=== PATIENT | female | born 1985 | race Two or more races ===

== ENCOUNTER 2025-04-24 09:34 | Emergency (ER) | payer MEDICAID, SELFPAY ==
[2025-04-24 09:35] VITALS: BMI 31.9
[2025-04-24 09:43] VITALS: BP 108/64; PULSE 98; RESP 18; TEMP 36.6; O2SAT 99
--- NOTE | 2025-04-24 09:58 | XR_ITS ---
EXAMINATION: PA lateral chest 2 views TECHNIQUE: Upright PA lateral chest 2 views Date and time: April 24, 2025, 1003 hours INDICATIONS: Chest pain today. FINDINGS: Normal heart size Lungs are clear. Osseous structures are intact IMPRESSION: No active disease
--- NOTE | 2025-04-24 09:58 | EKG_ITS ---
[facility] Test Date: 2025-04-24 Pat Name: EKTA AMADOR Department: Room: - Gender: Female Allergist: : 1985 Requested By: Edis Larsen (GRAD INTERN) Order Number: [id number] Reading MD: Edis Larsen (GRAD INTERN) Measurements Intervals Vale Rate: 91 P: 47 ND: 142 QRS: 10 QRSD: 102 T: 61 QT: 336 QTc: 415 Interpretive Statements SINUS RHYTHM Compared to ECG 08/16/2021 03:47:06 No significant changes /store/S0/[id number].pdf
--- NOTE | 2025-04-24 09:59 | PD.EDRME ---
Rapid Medical Screening Exam RME Arrival date/time: 04/24/25 09:34 39-year-old female history of prediabetes, cholecystectomy, pancreatitis presents to the emergency department today for complaint of upper abdominal pain x 1 week Chief Complaint: Abdominal Pain Time Seen by Provider: 04/24/25 09:51 Vital signs: Vital Signs Temperature 97.8 F 04/24/25 09:43 Pulse Rate 98 04/24/25 09:43 Respiratory Rate 18 04/24/25 09:43 Blood Pressure 108/64 04/24/25 09:43 Pulse Oximetry (%) 99 04/24/25 09:43 Oxygen Delivery Method Room Air 04/24/25 09:43 Vital signs reviewed by provider: Yes Exam: On exam patient is mild tenderness upper abdomen Clinical Impression: Labs imaging EKG obtained
[2025-04-24 10:28] LABS: Collection Type, Urine Clean Catch
[2025-04-24 10:40] LABS: Bilirubin,Urine Negative (Negative); Blood,Urine Negative (Negative); Clarity,Urine Clear (Clear/Hazy); Color,Urine Lt-Yellow (Lt Yel-Yel); Culture Indicated,Urine Not Indicated; Glucose, Urine Negative (Negative); Ketones,Urine Negative (Negative); Leukocyte Esterase,Urine Negative (Negative); Nitrite,Urine Negative (Negative); PH,Urine 6.0 (5.0-7.0); Protein,Urine Negative (Neg - Trace); RBC,Urine 1 /hpf (0-3); Specific Gravity,Urine 1.017 (1.001-1.035); Squamous Epithelial Cell,Urine 1 /hpf (0-5); Urobilinogen,Urine Negative mg/dL (0.0-1.0); WBC,Urine 1 /hpf (0-5)
[2025-04-24 10:41] LABS: HCG Qualitative,Urine Negative
[2025-04-24 11:07] LABS: Basophils # (Auto) 0.0 Thou/mm3 (0.0-0.2); Basophils % (Auto) 1 % (0-2.5); Eosinophils # (Auto) 0.2 Thou/mm3 (0.0-0.5); Eosinophils % (Auto) 3 % (0-10); Hematocrit 39.9 % (36.0-46.0); Hemoglobin 13.5 g/dL (12.0-16.0); Immature Granulocytes Auto 0.03 Thou/mm3 (0.00-0.00); Lymphocytes # (Auto) 2.3 Thou/mm3 (1.0-4.8); Lymphocytes % (Auto) 29 % (10-50); Mean Corpuscular HGB Conc 33.8 g/dl (31.0-37.0); Mean Corpuscular Hemoglobin 29.7 pg (25.0-35.0); Mean Corpuscular Volume 88 fL (80-100); Monocytes # (Auto) 0.6 Thou/mm3 (0.0-0.8); Monocytes % (Auto) 7 % (0-12); Neutrophils # (Auto) 4.8 Thou/mm3 (1.8-7.7); Neutrophils % (Auto) 60 % (37-80); Nucleated Red Blood Cell # 0.00 Thou/mm3 (0.00-0.00); Nucleated Red Blood Cell % 0 /100 WBC (0); Platelet Count 265 Thou/mm3 (140-440); RDW Standard Deviation 40.3 fL (36.4-46.3); Red Blood Count 4.54 Miln/mm3 (4.00-5.20); White Blood Count 8.0 Thou/mm3 (3.6-11.0)
[2025-04-24 11:25] LABS: Alanine Aminotransferase 23 U/L (10-49); Albumin, Serum 4.8 gm/dL (3.5-5.0); Albumin/Globulin Ratio 1.8 (1.2-2.2); Alkaline Phosphatase 92 U/L (46-116); Anion Gap 9 (7-16); Aspartate Amino Transferase 19 U/L (0-34); BUN/Creatinine Ratio 16 Ratio (12-20); Bilirubin,Total 1.0 mg/dL (0.3-1.2); Blood Urea Nitrogen 11 mg/dL (9-23); Calcium 9.3 mg/dL (8.3-10.6); Calcium (Corrected) 9.3 mg/dL (8.5-10.1); Carbon Dioxide 25.9 mMol/L (20.0-31.0); Chloride 105 mMol/L (98-107); Creatinine (Component) 0.7 mg/dL (0.6-1.3); Estimated Creatinine Clearance 130.2 mL/min (>60); Globulin 2.7 gm/dL (2.3-3.5); Glucose 92 mg/dL (74-106); Lipase 46 U/L (12-53); Osmolality,Calculated 278 (275-295); Potassium 4.7 mMol/L (3.4-5.1); Sodium 140 mMol/L (136-145); Total Protein 7.5 gm/dL (5.7-8.2); Troponin I < 0.002 ng/mL (0.0-0.045); eGFR > 60 See Note
--- NOTE | 2025-04-24 12:03 | XR_ITS ---
Examination: CT abdomen and pelvis without contrast. Coronal 3-D reconstructions. Sagittal 2-D reconstructions. Date and time of exam: April 24, 2025, 1319 hours, comparison April 19, 2022 INDICATIONS: Abdominal pain nausea vomiting diarrhea 3 days CTDI: vol (mGy): 11 DLP: (mGycm): 693 Technique: Axial images of the abdomen have been obtained, 3 mm slice thickness Intravenous contrast material has not been administered. Low dose protocols were performed. One or more of the following dose reduction techniques were used; automated exposure control, adjustment of the mA and/or KV according to patient size, use of iterative reconstruction technique. Findings: No visualized liver or splenic lesion Absent gallbladder No pancreatic or adrenal mass No renal or ureteral calculi, no hydronephrosis 7 mm fat density posterior right kidney and 21 mm angiomyolipoma lower pole right kidney Aorta normal size Normal appendix No bowel obstruction Minimal fluid distended small bowel Left pelvic mass 4.5 cm which may represent a cyst Urinary bladder intact Prominent thoracic spondylosis T11-L1 IMPRESSION: Benign-appearing right renal angiomyolipomas Normal appendix Recommend pelvic sonography to assess 4.5 cm left pelvic mass
--- NOTE | 2025-04-24 15:18 | XR_ITS ---
Examination: Pelvic ultrasound, transabdominal, complete Technique: Transabdominal ultrasound of the pelvis performed using grayscale imaging Date and time of exam: April 24, 2025, 1440 hours INDICATIONS: Pelvic pain today, 4.5 cm left pelvic mass on CT abdomen/pelvis study today FINDINGS: Uterus 10.2 cm endometrial stripe 1.0 cm No uterine mass or intrauterine gestation Right ovary 3.2 cm arterial flow Left ovary 6.0 cm arterial flow, 5.2 x 4.0 x 4.9 cm mixed echogenic mass which may represent a cyst with internal debris IMPRESSION: Recommend MRI pelvis follow-up pre and postcontrast to assess complex partially cystic mass left ovary, 5.2 x 4.0 x 4.9 cm
[2025-04-24 15:57] VITALS: BP 112/60; PULSE 79; RESP 16; TEMP 36.6; O2SAT 100
--- NOTE | 2025-04-24 16:33 | PD.EDABDPN ---
ED Abdominal Pain RME/HPI General Chief Complaint: Abdominal Pain Stated complaint: abd pain Time seen by provider: 04/24/25 09:51 Arrival date/time: 04/24/25 09:34 40-year-old female presents to the emergency department today for complaints of generalized abdominal pain over the last couple of days patient reports no fever nausea or vomiting. Limitations: no limitations RME / HPI RME / HPI narrative: 04/24/25 09:34 39-year-old female history of prediabetes, cholecystectomy, pancreatitis presents to the emergency department today for complaint of upper abdominal pain x 1 week Exam: On exam patient is mild tenderness upper abdomen Impression: Labs imaging EKG obtained Related Data Home Medications ?Medication ?Instructions ?Recorded ?Confirmed loratadine 10 mg tablet 10 mg PO QDAY 04/19/22 04/20/22 pantoprazole 40 mg tablet,delayed 40 mg PO QDAY 04/19/22 04/20/22 release montelukast 10 mg tablet 10 mg PO QDAY 04/20/22 04/20/22 Previous Rx's ?Medication ?Instructions ?Recorded oxycodone-acetaminophen 5 mg-325 1 tab PO Q6H PRN pain #10 tabs 04/22/22 mg tablet (Percocet) aluminum-mag hydroxide-simethicone 10 ml PO TID PRN indigestion 11/16/23 400 mg-400 mg-40 mg/5 mL oral susp #3,000 mL (Antacid Plus Anti-Gas) ondansetron 4 mg disintegrating 4 mg PO Q8H PRN nausea and 11/16/23 tablet vomiting #30 tabs Allergies Allergy/AdvReac Type Severity Reaction Status Date / Time No Known Allergies Allergy Verified 04/24/25 09:39 Review of Systems Review of Systems Systems Reviewed: All systems reviewed, normal except as documented Constitutional Constitutional: Reports system reviewed and no additional complaints, except as documented, Denies fever(s) and Denies headache(s) Eyes Eyes: Reports system reviewed and no additional complaints, except as documented and Denies blurry vision ENT Ears, Nose, Mouth, and Throat: Reports system reviewed and no additional complaints, except as documented, Denies headache(s), Denies nasal congestion and Denies nasal discharge Cardiovascular Cardiovascular: Reports system reviewed and no additional complaints, except as documented, Denies chest pain and Denies dyspnea Respiratory Respiratory: Reports system reviewed and no additional complaints, except as documented, Denies chest congestion, Denies cough and Denies dyspnea Gastrointestinal Gastrointestinal: Reports system reviewed and no additional complaints, except as documented and Reports abdominal pain Integumentary/Breasts Skin/Breast: Reports system reviewed and no additional complaints, except as documented and Denies rash Neurologic Neurologic: Reports system reviewed and no additional complaints, except as documented, Reports as per HPI and Denies headache(s) Past Medical History Past Medical History NEUROLOGIC: Negative Neurological Disorders or Seizures CARDIAC: Negative Cardiac Disorders or Congestive Heart Failure RESPIRATORY: Negative Chronic Obstructive Pulmonary Disease (COPD) or Asthma GASTROINTESTINAL: Positive Gastroesophageal Reflux Disease; Negative Gastrointestinal Disorders GENITOURINARY: Negative Genitourinary Disorders or Renal Disease REPRODUCTIVE: Positive Previous Pregnancies () MUSCULOSKELETAL: Positive Musculoskeletal Disorders ENDOCRINE: Negative Endocrine Disorders, Diabetes Mellitus Type 1 or Diabetes Mellitus Type 2 HEMATOLOGIC: Negative Blood Disorders or Sickle Cell Disease PSYCHO/SOCIAL: Positive Depression and Anxiety OTHER HISTORY: Positive Chicken Pox; Negative Hospitalization, Shingles, Falls, Blood Transfusions, Blood Transfusion Reaction, Anesthesia Reactions or Cancer Family History FAMILY HISTORY: Positive Family Surgery; Negative Family Cardiac Disorders, Family Cancer or Family Anesthesia Reaction Surgical History SURGICAL: Positive Section (x1) Social History SMOKING STATUS: Never smoker ED Exam General Limitations: Present no limitations General appearance: Present alert and in no apparent distress Head Head exam: Present atraumatic Eye Eye exam: Present normal appearance, PERRL and EOMI ENT ENT exam: Present normal exam, normal oropharynx and mucous membranes moist Neck Neck exam: Present normal inspection, full ROM and trachea midline Chest Chest inspection: Present normal inspection and symmetric chest wall rise Respiratory Respiratory exam: Present normal lung sounds bilaterally Cardiovascular Cardiovascular exam: Present regular rate, normal rhythm and normal heart sounds Abdominal Exam Abdominal exam: Present soft and normal bowel sounds; Absent distention, tenderness, guarding, rebound, rigidity, Isaac's sign or tenderness at McBurney's Point Abdominal tenderness: Present epigastrium and mild; Absent RUQ, RLQ or LUQ Extremities Exam Extremities exam: Present normal inspection and full ROM Back Exam Back exam: Present normal inspection and full ROM Neurological Exam Neurological exam: Present alert, oriented X3 and CN II-XII intact Psychiatric Psychiatric exam: Present normal affect and normal mood Skin Skin exam: Present warm, dry, intact and normal color Course Quality Measures none Orders Category Date Time Status EKG (ED ONLY) *Do not use* NOW Care 04/24/25 09:[address] abdomen pelvis wo con Stat Exams 04/24/25 12:03 Completed EKG (ED Only) Stat Exams 04/24/25 09:58 Draft US pelvic complete Stat Exams 04/24/25 15:18 Completed XR chest 2V Stat Exams 04/24/25 09:58 Completed CBC Stat Lab 04/24/25 10:41 Completed Comprehensive Metabolic Panel Stat Lab 04/24/25 10:41 Completed HCG Qualitative,Urine Stat Lab 04/24/25 10:13 Completed Lipase Stat Lab 04/24/25 10:41 Completed Troponin I Stat Lab 04/24/25 10:41 Completed UA, C/S IF [Urinalysis, C/S if Indicated] Stat Lab 04/24/25 10:13 Completed Vital Signs Vital signs: Vital Signs Temperature 97.8 F 04/24/25 09:43 Pulse Rate 98 04/24/25 09:43 Respiratory Rate 18 04/24/25 09:43 Blood Pressure 108/64 04/24/25 09:43 Pulse Oximetry (%) 99 04/24/25 09:43 Oxygen Delivery Method Room Air 04/24/25 09:43 O2 saturation 98% room air within normal limits PROCEDURES: EKG Interpretation #1: Date of EK04/24/25 Time of EK:58 Rate: 91 Interpretation: Interpreted by me EKG Impression: Normal sinus rhythm, No acute ST-T changes, No ectopy, No ischemic changes, Normal QRS, Normal intervals and Normal axis Abdominal Pain MDM MDM Narrative MDM Narrative:: 40-year-old female presents to the emergency department today for complaints of generalized abdominal pain over the last couple of days patient reports no fever nausea or vomiting. On exam patient well-appearing does not appear look toxic no distress Lab work and imaging obtained reviewed patient's lab work and imaging with her Patient given a copy of her ultrasound report as well as CT report instructed to follow-up with PCP in order get an outpatient MRI patient states understanding For emergent concerns patient is instructed return immediately for further evaluation Patient data External records reviewed:: [facility] previous records Clinical information provided by:: patient Social determinants that could affect healthcare access:: none Patient has the following chronic illnesses:: None How is presenting disease/condition affected by chronic disease/condition?: no chronic disease Evaluation data The following diagnostics were reviewed and interpreted by me:: lab results and radiology exam(s) Lab and/or radiology exams considered but not ordered:: Labs radiology obtained Interpretation Summary: FINDINGS: Uterus 10.2 cm endometrial stripe 1.0 cm No uterine mass or intrauterine gestation Right ovary 3.2 cm arterial flow Left ovary 6.0 cm arterial flow, 5.2 x 4.0 x 4.9 cm mixed echogenic mass which may represent a cyst with internal debris IMPRESSION: Recommend MRI pelvis follow-up pre and postcontrast to assess complex partially cystic mass left ovary, 5.2 x 4.0 x 4.9 cm Medications / Prescriptions Medications or Prescriptions considered but not ordered:: Given Medication administrations:: Given Consultations Consultation(s) initiated? (list below): No Diagnosis Differential diagnosis abdominal pain: abdominal pain, acute appendicitis, pancreatitis and small bowel obstruction Most likely diagnosis given after review of the tests above:: Abdominal pain Admission Indicated Admission indicated?: not indicated Admission Request Was there a request for admission?: No Disposition Plan Disposition Plan: Discharge Discharge Attestation Discharge Attestation: The patient and all family members were given an opportunity to ask questions and understood the discharge instructions. Discharge instructions specifically effects, indications for sooner follow up or return to the emergency department, and the expected course of current diagnosis. Patient condition: Stable Discharge Plan Plan Patient Disposition: HOME (Self Care) Discharge Disposition comment: Stable Prescriptions/Referrals Prescriptions/Med Rec: No Action pantoprazole 40 mg tablet,delayed release (DR/EC) 40 mg PO QDAY Patient Comments: TOME BLADIMIR TABLETA POR VIA ORAL TODOS LOS 30 loratadine 10 mg tablet 10 mg PO QDAY Patient Comments: TOME BLADIMIR TABLETA TODOS LOS D montelukast 10 mg Tablet 10 mg PO QDAY oxycodone-acetaminophen [Percocet] 5-325 mg tablet 1 tab PO Q6H MDD 6 tabs PRN (Reason: pain) Qty: 10 0RF alum-mag hydroxide-simeth [Antacid Plus Anti-Gas] 400-400-40 mg/5 mL suspension 10 ml PO TID PRN (Reason: indigestion) Qty: 3000 0RF ondansetron 4 mg tablet,disintegrating 4 mg PO Q8H PRN (Reason: nausea and vomiting) Qty: 30 0RF Referrals: Teddy La MD [Primary Care Provider, Family Practice] - In 1 week Problem List Clinical Impression: Abdominal pain, Mass, ovarian Patient/Caregiver Discharge Instructions Education Materials: Abdominal Pain Additional Instructions: Please follow up with your primary care doctor in the next 24-48hrs for any worsening symptoms return here immediately Please bring a copy of your CT report as well as your ultrasound report your PCP request outpatient MRI for emergent concerns return immediately Print Language: [place] Zealander Stand Alone Forms: Michelle Award Info., Patient Portal Info Letter PA/LAB TESTER Supervising Physician PA/ROSELIA Supervising Physician: dr silva
== END 2025-04-24 16:42 | disposition home or self-care (01) ==
PROVIDERS: Emergency Provider Nurse Practitioner Primary Care; PCP Family Medicine
DX: N83.8 Other noninflammatory disorders of ovary, fallopian tube and broad ligament (principal); R07.9 Chest pain, unspecified; R11.2 Nausea with vomiting, unspecified; R19.7 Diarrhea, unspecified
CPT/HCPCS: 36415; 71046; 74176; 76856; 80053; 81001; 81025; 83690; 84484; 85025; 93005; 99283